=== PATIENT | male | born 1960 | race Caucasian/White ===

== ENCOUNTER → 2016-08-11 | Outpatient (CLI) | payer OTHER | LOC: GRHH 11:46 | PROVIDERS: ATTEND Family Medicine | DX: E11.42 Type 2 diabetes mellitus with diabetic polyneuropathy (principal); I10 Essential (primary) hypertension ==

== ENCOUNTER → 2016-12-10 | Outpatient (CLI) | payer BC, OTHER | END | disposition home or self-care (01) | LOC: GRHH 09:40 | PROVIDERS: ATTEND Emergency Medicine | DX: E11.9 Type 2 diabetes mellitus without complications (principal); S91.309A Unspecified open wound, unspecified foot, initial encounter ==

== ENCOUNTER → 2016-12-17 | Outpatient (CLI) | payer BC | END | disposition home or self-care (01) | LOC: GRHH 14:56 | PROVIDERS: ATTEND Family Medicine | DX: E11.9 Type 2 diabetes mellitus without complications (principal) ==

== ENCOUNTER 2017-02-13 13:40 | Emergency (ER) | payer BC ==
--- NOTE | 2017-02-13 15:46 | ED.PDOC ---
History of Present Illness - General Chief Complaint: Diabetic Complaint Stated Complaint: nausea/vomiting Time Seen by Provider: 02/13/17 15:45 Source: patient, RN notes reviewed Exam Limitations: no limitations - History of Present Illness Initial Comments: Omari Domínguez 56 y/o male stated that he had been nauseated the last 2 days and vomited 2-3 x tried eating bagel and cheese but threw up but able to eat yogurt and drink coke w/o nausea or vomiting.Has been diabetic for the last 20 years presently on insulin.Also has high blood pressure on acei. Timing/Duration: other - 2 days ago Severity: moderate Improving Factors: nothing Worsening Factors: eating Associated Symptoms: loss of appetite Allergies/Adverse Reactions: Allergies Azithromycin Allergy (Verified 12/10/15 09:54) Paroxetine [From Paxil] Allergy (Verified 12/10/15 09:54) Home Medications: Ambulatory Orders Insulin Aspart [Novolog] 38 unit SC TID 10/12/14 Insulin Glargine [Lantus Solostar] 40 unit SC BID 10/12/14 Lisinopril [Zestril] 10 mg PO DAILY 10/12/14 Gabapentin 300 mg PO TID 12/20/15 HYDROcodone 5MG/APAP 325MG [[place] 5/325] 1 tab PO TID 12/20/15 Pantoprazole Tablet [Protonix] 40 mg PO DAILY 12/20/15 Temazepam 15 mg PO BEDTIME 12/20/15 Metoclopramide Tab [Reglan Tab] 5 mg PO ACHS #60 tab 02/13/17 Review of Systems - Review of Systems Constitutional: States: no symptoms reported EENTM: States: no symptoms reported Respiratory: States: no symptoms reported Cardiology: States: no symptoms reported Gastrointestinal/Abdominal: States: see HPI Genitourinary: States: no symptoms reported Musculoskeletal: States: no symptoms reported Skin: States: no symptoms reported Neurological: States: no symptoms reported Endocrine: States: no symptoms reported Hematologic/Lymphatic: States: no symptoms reported Past Medical History (General) - Patient Medical History Hx Seizures: No Hx Stroke: Yes Hx Dementia: No Hx Asthma: No Hx of COPD: No Hx Cardiac Disorders: No Hx Congestive Heart Failure: No Hx Pacemaker: No Hx Hypertension: Yes Hx Diabetes: Yes Hx Gastroesophageal Reflux: Yes Hx Renal Disease: Yes - hx kidney stones Hx Cancer: No Hx of HIV: No Hx Hepatitis C: No Hx MRSA: No - staph Rt hand Hx Other PMH: Yes - charcot foot MRSA Source:: Wound Surgical History: other - thoracotomy,right knee ,hand,shoulder arthroscopy - Vaccination History Hx Tetanus, Diphtheria Vaccination: No Hx Influenza Vaccination: Yes Hx Pneumococcal Vaccination: Yes - Social History Hx Tobacco Use: No Hx Chewing Tobacco Use: No Hx Alcohol Use: No Hx Substance Use: No Hx Depression: No Hx Physical Abuse: No Hx Emotional Abuse: No Hx Suspected Abuse: No - Female History Patient : No Family Medical History - Family History Mother Family History: Unknown - patient adopted Hx Family Diabetes: Yes Physical Exam - Physical Exam General Appearance: Alert, Comfortable, No apparent distress Eye Exam: right normal, left other - fluorescein test negative,posterior chamber blurry Ears, Nose, Throat: hearing grossly normal, normal ENT inspection, normal pharynx Neck: non-tender, full range of motion Respiratory: chest non-tender, lungs clear, no respiratory distress Cardiovascular/Chest: normal peripheral pulses, regular rate, rhythm, no gallop , no murmur Peripheral Pulses: radial,right: 1+, radial,left: 1+ Gastrointestinal/Abdominal: normal bowel sounds, non tender, soft Back Exam: normal inspection, no CVA tenderness, no vertebral tenderness Extremity: no pedal edema, no calf tenderness, other - left foot with diabetic ulcer goes to wound care Progress - Progress Progress: 02/13/17 18:04 Vital Signs - 8 hr 02/13/17 14:00 Temperature 97.6 F Pulse Rate [ 90 Right Radial] Respiratory 20 Rate Blood Pressure 149/83 [Right Arm] O2 Sat by Pulse 94 L Oximetry 02/13/17 15:36 URINALYSIS Stat 02/13/17 16:30 EKG STAT Laboratory Results - last 24 hr 02/13/17 02/13/17 02/13/17 15:45 15:45 15:45 WBC 7.4 RBC 4.85 Hgb 13.8 L Hct 42.0 MCV 86.6 MCH 28.4 MCHC 32.8 L RDW 14.3 Plt Count 261 MPV 8.7 Absolute Neuts (auto) 6.00 Absolute Lymphs (auto) 1.00 Absolute Monos (auto) 0.40 Absolute Eos (auto) 0.00 Absolute Basos (auto) 0.00 Neutrophils % 80.3 H Lymphocytes % 13.5 L Monocytes % 4.8 Eosinophils % 0.7 L Basophils % 0.7 Sodium 132 L Potassium 5.4 H Chloride 95 L Carbon Dioxide 29 Anion Gap 13.4 BUN 18 Creatinine 0.92 BUN/Creatinine Ratio 19.6 POC Glucose 264 H Random Glucose 292 H Serum Osmolality 277.2 Calcium 9.2 Total Bilirubin 0.4 AST 34 ALT 28 Alkaline Phosphatase 78 Serum Total Protein 7.9 Albumin 4.0 Globulin 3.9 H Albumin/Globulin Ratio 1.0 L Lipase 02/13/17 15:45 WBC RBC Hgb Hct MCV MCH MCHC RDW Plt Count MPV Absolute Neuts (auto) Absolute Lymphs (auto) Absolute Monos (auto) Absolute Eos (auto) Absolute Basos (auto) Neutrophils % Lymphocytes % Monocytes % Eosinophils % Basophils % Sodium Potassium Chloride Carbon Dioxide Anion Gap BUN Creatinine BUN/Creatinine Ratio POC Glucose Random Glucose Serum Osmolality Calcium Total Bilirubin AST ALT Alkaline Phosphatase Serum Total Protein Albumin Globulin Albumin/Globulin Ratio Lipase 19 L - EKG/XRAY/CT EKG: Sinus, no ST T wave changes Comments: heart rate 88 Departure - Departure Clinical Impression: Nausea & vomiting Qualifiers: Vomiting type: unspecified Vomiting Intractability: unspecified Qualified Code( s): R11.2 - Nausea with vomiting, unspecified Diabetes mellitus Qualifiers: Diabetes mellitus type: type 1 Diabetes mellitus complication status: with unspecified complications Qualified Code(s): E10.8 - Type 1 diabetes mellitus with unspecified complications Time of Disposition: 21:36 Disposition: Discharge to Home or Self Care Condition: Fair Departure Forms: ED Discharge - Pt. Copy, Patient Portal Self Enrollment Instructions: DI for Gastroparesis, Gastroparesis Diet: diabetic diet Referrals: Alex Kaur MD [Primary Care Provider] - 1-2 Weeks Prescriptions: Metoclopramide Tab [Reglan Tab] 5 mg PO ACHS #60 tab Home Medications: Ambulatory Orders Insulin Aspart [Novolog] 38 unit SC TID 10/12/14 Insulin Glargine [Lantus Solostar] 40 unit SC BID 10/12/14 Lisinopril [Zestril] 10 mg PO DAILY 10/12/14 Gabapentin 300 mg PO TID 12/20/15 HYDROcodone 5MG/APAP 325MG [[place] 5/325] 1 tab PO TID 12/20/15 Pantoprazole Tablet [Protonix] 40 mg PO DAILY 12/20/15 Temazepam 15 mg PO BEDTIME 12/20/15 Metoclopramide Tab [Reglan Tab] 5 mg PO ACHS #60 tab 02/13/17 Additional Instructions: Follow up with primary md 02/16/2017 call for appointment
[2017-02-13] MEDS ORDERED: SODIUM CHLORIDE 0.9% 1000ML 1,000 ML IVS ONE (16:24)
[2017-02-13] MEDS ORDERED: INSULIN, REG.(HUMAN) 100 U/ML VIAL SUBCU ONE (16:25)
[2017-02-13] MEDS ORDERED: METOCLOPRAMIDE HCL INJ 10 MG/2 ML VIAL IV ONE (16:27)
--- NOTE | 2017-02-13 16:51 | RAD ---
EXAM: Chest,1 View CLINICAL INDICATION: 56-year-old male with nausea and vomiting. TECHNIQUE: Single view, AP portable chest was obtained. COMPARISON: 12/21/2015. FINDINGS: Unremarkable cardiac and mediastinal silhouette. Heart size is normal. Low lung volumes grossly clear without focal opacity, pneumothorax or pleural effusions. LEFT basilar linear opacities compatible with scarring stable in comparison to the previous examination. The visualized bones are within normal limits. IMPRESSION: No acute cardiopulmonary abnormalities. Electronically signed by: Jennyfer Neri MD 02/13/2017 4:50 PM CDT Workstation: [id number]
[2017-02-13 17:32] VITALS: TEMP 97.6
[2017-02-14 00:11] VITALS: BP 163/94; O2SAT 99
== END 2017-02-13 21:50 | disposition home or self-care (01) ==
LOC: ER 13:40
DX: R11.2 Nausea with vomiting, unspecified (principal); E10.8 Type 1 diabetes mellitus with unspecified complications; I10 Essential (primary) hypertension; Z87.442 Personal history of urinary calculi; Z79.4 Long term (current) use of insulin; Z88.3 Allergy status to other anti-infective agents; Z79.899 Other long term (current) drug therapy
CPT/HCPCS: 36415; 36416; 71010; 80053; 82948; 83690; 85025; 93005; J2765; J7030

== ENCOUNTER 2017-05-25 15:08 | Emergency (ER) | payer BC ==
--- NOTE | 2017-05-25 15:41 | RAD ---
EXAM DESCRIPTION: Chest,1 View CLINICAL HISTORY: 56 years,Male,pain COMPARISON: February 13, 2017 FINDINGS: Linear opacity in the right lung base more prominent than prior study Heart size and pulmonary vascularity are normal. Bony elements are unremarkable for age. IMPRESSION: There is a linear opacity right lung base which is more prominent than prior study. This could be worsening atelectasis but cannot exclude developing infiltrate. Electronically signed by: Eleno Payton MD 05/25/2017 3:40 PM CDT
--- NOTE | 2017-05-25 16:04 | CT ---
EXAM DESCRIPTION: Head CLINICAL HISTORY: stroke symptoms COMPARISON: Cerebral magnetic resonance imaging dated 02 May 2014 TECHNIQUE: Non contrast cranial CT.This exam was performed according to our departmental dose-optimization program, which includes automated exposure control, adjustment of the mA and/or kV according to patient size and/or use of iterative reconstruction technique. FINDINGS: The exam demonstrates a surgical implant in the left orbit. Portions of the orbits and paranasal sinuses imaged are otherwise unremarkable. The mastoid sinus air cells are clear. No mass lesions or mass effect are observed. The ventricles and cisternal spaces are within range of normal. No intracranial hemorrhage is noted. No CT evidence of ischemia is detected. 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 Exam is otherwise unremarkable. Electronically signed by: Eleno Levine MD 05/25/2017 4:02 PM CDT
[2017-05-25 16:06] VITALS: TEMP 98.4
--- NOTE | 2017-05-25 16:16 | ED.PDOC ---
History of Present Illness - General Chief Complaint: Neuro Symptoms/Deficits Stated Complaint: AMS Time Seen by Provider: 05/25/17 15:20 Source: patient Exam Limitations: no limitations - History of Present Illness Initial Comments: Omari Domínguez 56 y/o male brought by after it was noted by the daughter that his speech was slurred this morning lasting for about several minutes then at about 1330 had passed out for about a minute at home witnessed by the daughter but no fall or blood sugar taken.3 days ago was acting confused stated that he wants to be wake up but he was fully awake which happened 2 x.He has DM 2 ,cva x 2 ,neuropathy,retinopathy left eye. Timing/Duration: waxing and waning, other - 3 days ago Severity: moderate Episode Description: see hpi Improving Factors: nothing Worsening Factors: nothing Associated Symptoms: confusion, other - slurred speech Allergies/Adverse Reactions: Allergies Azithromycin Allergy (Verified 12/10/15 09:54) Paroxetine [From Paxil] Allergy (Verified 12/10/15 09:54) Home Medications: Ambulatory Orders Insulin Aspart [Novolog] 40 unit SC TID 10/12/14 Insulin Glargine [Lantus Solostar] 40 unit SC BID 10/12/14 Gabapentin 300 mg PO BID 12/20/15 Temazepam 15 mg PO BEDTIME 12/20/15 Atorvastatin Calcium [Lipitor] 20 mg PO BEDTIME 05/25/17 Clopidogrel Bisulfate [Plavix] 75 mg PO QD 05/25/17 DULoxetine HCL [Cymbalta] 90 mg PO DAILY@0700 05/25/17 Omeprazole 40 mg PO BID 05/25/17 Oxcarbazepine [Trileptal] 150 mg PO BID 05/25/17 QUEtiapine FUMARATE [SEROquel] 150 mg PO BEDTIME 05/25/17 Review of Systems - Review of Systems Constitutional: States: no symptoms reported EENTM: States: no symptoms reported Respiratory: States: no symptoms reported Cardiology: States: no symptoms reported Gastrointestinal/Abdominal: States: no symptoms reported Genitourinary: States: no symptoms reported Musculoskeletal: States: no symptoms reported Skin: States: no symptoms reported Neurological: States: see HPI Endocrine: States: no symptoms reported Past Medical History (General) - Patient Medical History Hx Seizures: No Hx Stroke: Yes Hx Dementia: No Hx Asthma: No Hx of COPD: No Hx Cardiac Disorders: No Hx Congestive Heart Failure: No Hx Pacemaker: No Hx Hypertension: Yes Hx Diabetes: Yes Hx Gastroesophageal Reflux: Yes Hx Renal Disease: Yes - hx kidney stones Hx Cancer: No Hx of HIV: No Hx Hepatitis C: No Hx MRSA: No - staph Rt hand Hx Other PMH: Yes - charcot foot MRSA Source:: Wound Surgical History: other - thoracotomy,right knee,hand,shoulder arthroscopy - Vaccination History Hx Tetanus, Diphtheria Vaccination: No Hx Influenza Vaccination: Yes Hx Pneumococcal Vaccination: Yes - Social History Hx Tobacco Use: No Hx Chewing Tobacco Use: No Hx Alcohol Use: No Hx Substance Use: No Hx Depression: No Hx Physical Abuse: No Hx Emotional Abuse: No Hx Suspected Abuse: No - Activities of Daily Living Patient Lives Alone: No - family Grooming Ability: Independent Eating (Feeding) Ability: Independent Toileting Ability: Independent - Female History Patient : No Family Medical History - Family History Mother Family History: Unknown Hx Family Diabetes: Yes Hx Family;Other: ADOPTED Physical Exam - Physical Exam General Appearance: Alert, Comfortable, No apparent distress Eye Exam: right normal, left other - legally blind,light perception only ENT Exam: normal ENT inspection, hearing grossly normal, pharynx normal Neck: non-tender, full range of motion, supple, trachea midline Respiratory: chest non-tender, lungs clear, normal breath sounds Cardiovascular/Chest: normal peripheral pulses, regular rate, rhythm, no murmur Peripheral Pulses: radial,right: 2+, radial,left: 2+ Gastrointestinal/Abdominal: normal bowel sounds, non tender, soft, no organomegaly Back Exam: no CVA tenderness, no vertebral tenderness Extremities Exam: non-tender, no edema Mental Status: alert, 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 hearing, normal speech, PERRL Coordination/Gait: normal finger to nose Motor/Sensory: no motor deficit, no pronator drift, sensory deficit - foot with diabetic neuropathy Skin Exam: normal color, warm/dry Progress - Progress Progress: 05/25/17 16:22 Last Vital Signs Temp 98.4 F 05/25/17 15:10 Pulse 99 H 05/25/17 16:00 Resp 16 05/25/17 16:00 BP 161/93 05/25/17 16:00 Pulse Ox 95 05/25/17 16:00 10/30/17 17:55 Laboratory Tests 05/25/17 05/25/17 05/25/17 15:20 15:29 15:42 WBC RBC Hgb Hct MCV MCH MCHC RDW Plt Count MPV Absolute Neuts (auto) Absolute Lymphs (auto) Absolute Monos (auto) Absolute Eos (auto) Absolute Basos (auto) Neutrophils % Lymphocytes % Monocytes % Eosinophils % Basophils % PT INR PTT (SP) Sodium Potassium Chloride Carbon Dioxide Anion Gap BUN Creatinine BUN/Creatinine Ratio POC Glucose 262 H Random Glucose Serum Osmolality Calcium Total Bilirubin AST ALT Alkaline Phosphatase Creatine Kinase 174 CK-MB (CK-2) 7.1 H* CK-MB (CK-2) % 4.08 H Troponin I 0.01 Serum Total Protein Albumin Globulin Albumin/Globulin Ratio Urine Color Urine Appearance Urine pH Ur Specific [place] Urine Protein Urine Glucose (UA) Urine Ketones Urine Blood Urine Nitrite Urine Bilirubin Urine Urobilinogen Ur Leukocyte Esterase Urine RBC Urine WBC Ur Epithelial Cells Urine Bacteria Urine Opiates Screen Positive H Urine Barbiturates Negative Ur Phencyclidine Scrn Negative U Amphetamin/Meth Scrn Negative U Benzodiazepines Scrn Positive H U Cocaine Metab Screen Negative U Cannabinoids Screen Negative 05/25/17 05/25/17 05/25/17 15:42 15:42 15:42 WBC 7.4 RBC 4.30 L Hgb 12.6 L Hct 37.3 L MCV 86.7 MCH 29.3 MCHC 33.9 RDW 13.4 Plt Count 193 MPV 10.1 Absolute Neuts (auto) 5.70 Absolute Lymphs (auto) 0.80 L Absolute Monos (auto) 0.60 Absolute Eos (auto) 0.20 Absolute Basos (auto) 0.10 Neutrophils % 77.6 Lymphocytes % 11.5 L Monocytes % 7.9 Eosinophils % 2.3 Basophils % 0.7 PT 11.7 INR 1.040 PTT (SP) 26.5 Sodium 133 L Potassium 3.4 L Chloride 98 L Carbon Dioxide 28 Anion Gap 10.4 L BUN 15 Creatinine 0.85 BUN/Creatinine Ratio 17.6 POC Glucose Random Glucose 233 H Serum Osmolality 274.7 L Calcium 9.3 Total Bilirubin 0.7 AST 53 H ALT 44 Alkaline Phosphatase 81 Creatine Kinase CK-MB (CK-2) CK-MB (CK-2) % Troponin I Serum Total Protein 7.4 Albumin 4.0 Globulin 3.4 Albumin/Globulin Ratio 1.2 Urine Color Urine Appearance Urine pH Ur Specific [place] Urine Protein Urine Glucose (UA) Urine Ketones Urine Blood Urine Nitrite Urine Bilirubin Urine Urobilinogen Ur Leukocyte Esterase Urine RBC Urine WBC Ur Epithelial Cells Urine Bacteria Urine Opiates Screen Urine Barbiturates Ur Phencyclidine Scrn U Amphetamin/Meth Scrn U Benzodiazepines Scrn U Cocaine Metab Screen U Cannabinoids Screen 05/25/17 05/25/17 16:14 17:27 WBC RBC Hgb Hct MCV MCH MCHC RDW Plt Count MPV Absolute Neuts (auto) Absolute Lymphs (auto) Absolute Monos (auto) Absolute Eos (auto) Absolute Basos (auto) Neutrophils % Lymphocytes % Monocytes % Eosinophils % Basophils % PT INR PTT (SP) Sodium Potassium Chloride Carbon Dioxide Anion Gap BUN Creatinine BUN/Creatinine Ratio POC Glucose Random Glucose Serum Osmolality Calcium Total Bilirubin AST ALT Alkaline Phosphatase Creatine Kinase CK-MB (CK-2) CK-MB (CK-2) % Troponin I < 0.02 Serum Total Protein Albumin Globulin Albumin/Globulin Ratio Urine Color Yellow Urine Appearance Clear Urine pH 5.0 Ur Specific [place] 1.010 Urine Protein 30 Urine Glucose (UA) >=1000 H Urine Ketones Negative Urine Blood Trace-intact H Urine Nitrite Negative Urine Bilirubin Negative Urine Urobilinogen 0.2 Ur Leukocyte Esterase Negative Urine RBC 0-1 Urine WBC 0-1 Ur Epithelial Cells 0 Urine Bacteria 0 Urine Opiates Screen Urine Barbiturates Ur Phencyclidine Scrn U Amphetamin/Meth Scrn U Benzodiazepines Scrn U Cocaine Metab Screen U Cannabinoids Screen - EKG/XRAY/CT EKG: Sinus, Tachy Comments: heart rate 99 CT Ordered: Yes - head no acute changes Departure - Departure Clinical Impression: Altered awareness, transient Diabetes Qualifiers: Diabetes mellitus type: type 2 Diabetes mellitus complication status: with other specified complication Diabetes mellitus correction insulin use: with correction use Qualified Code(s): E11.69 - Type 2 diabetes mellitus with other specified complication; Z79.4 - [facility] (current) use of insulin Time of Disposition: 18:11 Disposition: Discharge to Home or Self Care Condition: Fair Departure Forms: ED Discharge - Pt. Copy, Patient Portal Self Enrollment Referrals: Alex Kaur MD [Primary Care Provider] - 1-2 Weeks Home Medications: Ambulatory Orders Insulin Aspart [Novolog] 40 unit SC TID 10/12/14 Insulin Glargine [Lantus Solostar] 40 unit SC BID 10/12/14 Gabapentin 300 mg PO BID 12/20/15 Temazepam 15 mg PO BEDTIME 12/20/15 Atorvastatin Calcium [Lipitor] 20 mg PO BEDTIME 05/25/17 Clopidogrel Bisulfate [Plavix] 75 mg PO QD 05/25/17 DULoxetine HCL [Cymbalta] 90 mg PO DAILY@0700 05/25/17 Omeprazole 40 mg PO BID 05/25/17 Oxcarbazepine [Trileptal] 150 mg PO BID 05/25/17 QUEtiapine FUMARATE [SEROquel] 150 mg PO BEDTIME 05/25/17 Additional Instructions: Continue with all home medications;RETURN TO EMERGENCY ROOM NEEDED
[2017-05-25 18:27] VITALS: BP 157/87; O2SAT 98
== END 2017-05-25 18:25 | disposition home or self-care (01) ==
LOC: ER 15:08
DX: R40.4 Transient alteration of awareness (principal); E11.40 Type 2 diabetes mellitus with diabetic neuropathy, unspecified; E11.319 Type 2 diabetes mellitus with unspecified diabetic retinopathy without macular edema; I10 Essential (primary) hypertension; Z86.73 Personal history of transient ischemic attack (TIA), and cerebral infarction without residual deficits; Z79.4 Long term (current) use of insulin; Z79.02 Long term (current) use of antithrombotics/antiplatelets; Z79.899 Other long term (current) drug therapy; Z88.8 Allergy status to other drugs, medicaments and biological substances

== ENCOUNTER → 2017-07-10 | Outpatient (CLI) | payer BC, MEDICARE | LOC: GMAJ 10:32 | PROVIDERS: ATTEND Family Medicine | DX: Z12.5 Encounter for screening for malignant neoplasm of prostate (principal) ==

== ENCOUNTER → 2017-11-24 | Outpatient (CLI) | payer MEDICARE | LOC: GMAJ 13:15 | PROVIDERS: ATTEND Family Medicine | DX: E53.8 Deficiency of other specified B group vitamins (principal); E11.42 Type 2 diabetes mellitus with diabetic polyneuropathy; R41.89 Other symptoms and signs involving cognitive functions and awareness ==

== ENCOUNTER 2017-12-02 21:22 | Emergency (ER) | payer MEDICARE ==
[2017-12-02] MEDS ORDERED: CHLORHEXIDINE GLUCONATE 4 % 15 ML UD TOP ONE (21:50)
--- NOTE | 2017-12-02 22:18 | ED.PDOC ---
History of Present Illness - General Chief Complaint: Trauma Stated Complaint: fell, unsure if LOC Time Seen by Provider: 12/02/17 22:09 Source: patient, Vital Signs reviewed, family - Exam Limitations: no limitations - History of Present Illness Initial Comments: Omari Domínguez 57 y/o male stated he slipped and fell at home in the kitchen head hit the cement floor first but could not remember time ,felt dazed but no LOC able to get up noted bleeding on scalp. stated it was an hour ago. Occurred: this evening, other - see hpi Severity: moderate Head Injury Location: occipital Method of Injury: fell, other - see hpi Loss of Consciousness: dazed Associated Symptoms: denies symptoms Allergies/Adverse Reactions: Allergies Azithromycin Allergy (Verified 12/10/15 09:54) Paroxetine [From Paxil] Allergy (Verified 12/10/15 09:54) Home Medications: Ambulatory Orders Insulin Aspart [Novolog] 40 unit SC TID 10/12/14 Insulin Glargine [Lantus Solostar] 40 unit SC BID 10/12/14 Gabapentin 300 mg PO BID 12/20/15 Temazepam 15 mg PO BEDTIME 12/20/15 Atorvastatin Calcium [Lipitor] 20 mg PO BEDTIME 05/25/17 Clopidogrel Bisulfate [Plavix] 75 mg PO QD 05/25/17 DULoxetine HCL [Cymbalta] 90 mg PO DAILY@0700 05/25/17 Omeprazole 40 mg PO BID 05/25/17 Oxcarbazepine [Trileptal] 150 mg PO BID 05/25/17 QUEtiapine FUMARATE [SEROquel] 150 mg PO BEDTIME 05/25/17 Review of Systems - Review of Systems Constitutional: States: no symptoms reported EENTM: States: no symptoms reported Respiratory: States: no symptoms reported Cardiology: States: no symptoms reported Gastrointestinal/Abdominal: States: no symptoms reported Neurological: States: see HPI Past Medical History (General) - Patient Medical History Hx Seizures: No Hx Stroke: Yes Hx Dementia: Yes Hx Asthma: No Hx of COPD: No Hx Cardiac Disorders: No Hx Congestive Heart Failure: No Hx Pacemaker: No Hx Hypertension: Yes Hx Diabetes: Yes Hx Gastroesophageal Reflux: Yes Hx Renal Disease: Yes - , 20 yrs ago Hx Cancer: No Hx of HIV: No Hx Hepatitis C: No Hx MRSA: No - staph Rt hand MRSA Source:: Wound - Vaccination History Hx Tetanus, Diphtheria Vaccination: Yes Hx Influenza Vaccination: Yes Hx Pneumococcal Vaccination: Yes - Social History Hx Tobacco Use: No Hx Chewing Tobacco Use: No Hx Alcohol Use: No Hx Substance Use: No Hx Depression: No Hx Physical Abuse: No Hx Emotional Abuse: No Hx Suspected Abuse: No - Activities of Daily Living Grooming Ability: Independent Eating (Feeding) Ability: Independent Toileting Ability: Independent - Female History Patient : No Family Medical History - Family History Mother Family History: Unknown Hx Family Diabetes: Yes Hx Family;Other: ADOPTED Physical Exam - Physical Exam General Appearance: Alert, Comfortable, No apparent distress Head Injury: other - abrasions scalp Eye Exam: bilateral normal ENT Exam: hearing grossly normal, no evidence of ENT injury, no dental injury Neck Exam: non-tender, full range of motion, normal alignment, normal inspection Cardiovascular/Respiratory: regular rate, rhythm, no M/R/G, normal peripheral pulses Gastrointestinal/Abdominal: non tender, soft, no organomegaly Back Exam: no CVA tenderness, no vertebral tenderness Extremity: no pedal edema, no calf tenderness, other - diabetic foot ulcer Mental Status: alert, 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, normal speech Coordination/Gait: normal gait Motor/Sensory: no motor deficit, no sensory deficit, no pronator drift Skin Exam: normal color, warm/dry - Nanda Coma Score Best Eye Response (Nanda): (4) open spontaneously Best Verbal Response (Nanda): (5) oriented Best Motor Response (Swatara): (6) obeys commands Progress - Progress Progress: 12/02/17 22:21 Vital Signs - 8 hr 12/02/17 21:40 Temperature 96.8 F L Pulse Rate [ 92 H left] Respiratory 18 Rate Blood Pressure 124/80 [left] O2 Sat by Pulse 98 Oximetry - EKG/XRAY/CT CT Ordered: Yes - no acute intracranial abnormalities Departure - Departure Clinical Impression: Scalp abrasion, non-infected Fall Qualifiers: Encounter type: initial encounter Qualified Code(s): W19.XXXA - Unspecified fall, initial encounter Contusion of head Qualifiers: Encounter type: initial encounter Contusion of head detail: scalp Qualified Code(s): S00.03XA - Contusion of scalp, initial encounter Time of Disposition: 22:45 Disposition: Discharge to Home or Self Care Condition: Fair Departure Forms: ED Discharge - Pt. Copy, Patient Portal Self Enrollment Instructions: DI for Closed Head Injury Referrals: Alex Kaur MD [Primary Care Provider] - 1-2 Weeks Home Medications: Ambulatory Orders Insulin Aspart [Novolog] 40 unit SC TID 10/12/14 Insulin Glargine [Lantus Solostar] 40 unit SC BID 10/12/14 Gabapentin 300 mg PO BID 12/20/15 Temazepam 15 mg PO BEDTIME 12/20/15 Atorvastatin Calcium [Lipitor] 20 mg PO BEDTIME 05/25/17 Clopidogrel Bisulfate [Plavix] 75 mg PO QD 05/25/17 DULoxetine HCL [Cymbalta] 90 mg PO DAILY@0700 05/25/17 Omeprazole 40 mg PO BID 05/25/17 Oxcarbazepine [Trileptal] 150 mg PO BID 05/25/17 QUEtiapine FUMARATE [SEROquel] 150 mg PO BEDTIME 05/25/17 Additional Instructions: Ice pack to affected area 20 minutes 3 x a day during WAKING HOURS ONLY for 2 days;return to ER as needed;Tylenol 500 mg 1-2 tabs 3 x a day for pain
--- NOTE | 2017-12-02 22:27 | CT ---
EXAM DESCRIPTION: Head CLINICAL HISTORY: fall, laceration to head, hx dementia COMPARISON: May 25, 2017 Technique: Contiguous axial images of the brain were obtained without the administration of intravenous contrast. This exam was performed according to our departmental dose-optimization program which includes use of Automated Exposure Control, adjustment of the mA and/or kV according to patient size and/or use of iterative reconstruction technique. Findings: Brain: No hemorrhage. No territorial infarct. No mass effect. No herniation. Ventricles: Within normal limits for patient's age. Bones: No acute osseous abnormality. Paranasal sinuses: Unremarkable. Mastoid air cells: Unremarkable. Soft tissues: Right posterior parietal scalp swelling/hematoma. IMPRESSION: No acute intracranial abnormalities. Electronically signed by: Jesus Vargas MD 12/02/2017 10:26 PM CDT
[2017-12-02 22:57] VITALS: BP 151/91; TEMP 97; O2SAT 94
== END 2017-12-02 22:58 | disposition home or self-care (01) ==
LOC: ER 21:22
DX: S00.01XA Abrasion of scalp, initial encounter (principal); I10 Essential (primary) hypertension; E11.9 Type 2 diabetes mellitus without complications; K21.9 Gastro-esophageal reflux disease without esophagitis; Z86.73 Personal history of transient ischemic attack (TIA), and cerebral infarction without residual deficits; N28.9 Disorder of kidney and ureter, unspecified; Z79.4 Long term (current) use of insulin; Z79.02 Long term (current) use of antithrombotics/antiplatelets; W01.0XXA Fall on same level from slipping, tripping and stumbling without subsequent striking against object, initial encounter; Y92.000 Kitchen of unspecified non-institutional (private) residence as the place of occurrence of the external cause